=== PATIENT | female | born 1970 | race African-American/Black ===

== ENCOUNTER 2017-07-10 12:48 | Emergency (ER) | payer MEDICAID ==
[~2017-07-10] VITALS: Ht 167.6 cm; Wt 80.0 kg
[2017-07-10 15:35] LABS: BASOPHILS % 0.6 % (0.0-2.0); EOSINOPHILS % 1.6 % (0.0-5.0); HEMATOCRIT. 37.5 % (36.0-48.0); HEMOGLOBIN. 12.4 g/dL (12.0-16.0); LYMPHOCYTES % 34.3 % (20.0-50.0); MEAN CORPUSCULAR VOLUME 84.8 fL (81.0-99.0); MEAN PLATELET VOLUME 7.3 fl (7.4-10.4); MONOCYTES % 6.4 % (2.0-8.0); NEUTROPHILS % 57.1 % (40.0-76.0); PLATELET 303 x1000/uL (130-400); RED BLOOD CELL COUNT 4.43 mill/uL (4.2-5.4); RED CELL DISTRIBUTION WIDTH 14.1 % (11.6-14.6)
[2017-07-10 15:40] LABS: CHLORIDE 105 mEq/L (98-107)
[2017-07-10 16:04] LABS: HCG SCREEN NEGATIVE
[2017-07-10] MEDS ORDERED: IBUPROFEN 800MG TABLET PO ONE (17:15)
[2017-07-10] MEDS ORDERED: BACITRACIN ZINC 15GM TUBE TOP ONE (17:15)
[2017-07-10] MEDS ORDERED: BACITRACIN ZINC OINT UDPKT TOP SCH (18:00)
[2017-07-10 18:27] VITALS: BP 108/76
== END 2017-07-10 18:45 | disposition home or self-care (01) ==
LOC: ER 12:54
DX: R55 Syncope and collapse (principal); S00.81XA Abrasion of other part of head, initial encounter; W01.0XXA Fall on same level from slipping, tripping and stumbling without subsequent striking against object, initial encounter; Y93.89 Activity, other specified; Y92.89 Other specified places as the place of occurrence of the external cause
CPT/HCPCS: 36415; 70450; 70486; 80053; 82962; 84484; 84703; 85025; 93005; 99285; Z7610